=== PATIENT | female | born 1985 | race Two or more races ===

== ENCOUNTER 2025-05-18 08:29 | Inpatient (IN) | payer BC ==
[~2025-05-18] VITALS: Ht 152.4 cm; Wt 59.0 kg
[2025-05-18] MEDS ORDERED: 0.9 % SODIUM CHLORIDE 1,000 ML IV STA (08:45)
[2025-05-18] MEDS ORDERED: SUCRALFATE 1 G TABLET PO ONE (08:45)
[2025-05-18] MEDS ORDERED: FAMOTIDINE/PF 20 MG in 0.9 % SODIUM CHLORIDE 8 ML IV PUSH STA (08:45)
[2025-05-18 09:34] LABS: BASO % 0.2 % (0.1-1.2); EOS # 0.00 (0.04-0.54); EOS % 0.0 % (0.7-7.0); LYMPH # 0.69 (1.18-3.74); LYMPH % 4.2 % (19.3-53.1); MEAN PLATELET VOLUME 10.30 fl (9.4-12.4); MONO # 0.87 (0.24-0.82); MONO % 5.3 % (4.7-12.5); NEUT # 14.72 (1.56-6.13); NEUT % 89.9 % (34.0-71.1); RED CELL DISTRIBUTION WIDTH 13.7 % (11.6-14.4)
[2025-05-18 11:47] LABS: URINE APPEARANCE Clear; URINE BILIRRUBIN Negative (NEGATIVE); URINE BLOOD Negative; URINE COLOR Yellow; URINE GLUCOSE Negative (NEGATIVE); URINE LEUKOCYTE Trace; URINE NITRATE Negative; URINE PROTEIN 30 (NEGATIVE); URINE UROBILINOGEN 0.2 E.U./dl
[2025-05-18 11:49] LABS: URINE BACTERIA 41.9 uL (0.0-1933); URINE EPITHELIAL CELLS 72.7 uL (0.0-38.8); URINE RBC 55.8 uL (0.0-20.8); URINE WBC 41.3 uL (0.0-23.2)
[2025-05-18 12:00] LABS: ALT/SGPT 184.0 U/L (12-78); AST/SGOT 63.0 U/L (15-37); BILIRUBIN TOTAL 0.67 mg/dL (0.3-1.2); BUN CREA RATIO 9.0 (7.0-25.0); CREATININE SERUM 0.76 mg/dL (0.55-1.02); GFR 83.86; GLOBULINA 3.7 G/DL (2.4-3.5); GLUCOSE FASTING 128.0 mg/dL (65-100); OSMOLALITY SERUM 288.0 MOSM/KG (275-295)
[2025-05-18 12:08] LABS: TYPE CELLS SQUAMOUS; URINE CAST 0.43 uL (0.0-1.40); URINE KETONE 80 (NEGATIVE)
[2025-05-18] MEDS ORDERED: PIPERACILLIN/TAZOBACTAM SODIUM 3.375 GM VIAL IV ONE (14:15)
[2025-05-18] MEDS ORDERED: MORPHINE SULFATE 4 MG/ML VIAL IV ONE (14:15)
[2025-05-18] MEDS ORDERED: ONDANSETRON HCL 4 MG in 0.9 % SODIUM CHLORIDE 50 ML IV PRN (20:00)
[2025-05-18] MEDS ORDERED: 0.9 % SODIUM CHLORIDE 1,000 ML IV SCH (20:00)
[2025-05-18] MEDS ORDERED: HYOSCYAMINE SULFATE 0.125 MG TAB.SUBL PO ONE (20:00)
[2025-05-18] MEDS ORDERED: ACETAMINOPHEN 500 MG GEL..CAP PO PRN (20:00)
[2025-05-18 21:07] LABS: INR 1.15
[2025-05-18] MEDS ORDERED: MORPHINE SULFATE 4 MG/ML CARTRIDGE IV STA (22:04)
[2025-05-18] MEDS ORDERED: MORPHINE SULFATE 4 MG/ML CARTRIDGE IV PRN (22:15)
[2025-05-18 22:19] VITALS: BP 140/82; O2SAT 98
[2025-05-19] MEDS ORDERED: PIPERACILLIN/TAZOBACTAM SODIUM 3.375 GM in DEXTROSE 5 % IN WATER 100 ML IV SCH
[2025-05-19 01:09] VITALS: BP 127/79; O2SAT 94
[2025-05-19 08:57] VITALS: BP 135/81; O2SAT 98
[2025-05-19] MEDS ORDERED: FAMOTIDINE/PF 20 MG in 0.9 % SODIUM CHLORIDE 8 ML IV PUSH SCH (09:00)
[2025-05-19 15:12] LABS: ALT/SGPT 110.0 U/L (12-78); AST/SGOT 42.0 U/L (15-37); BILIRUBIN TOTAL 0.91 mg/dL (0.3-1.2); BUN CREA RATIO 11.0 (7.0-25.0); CREATININE SERUM 0.47 mg/dL (0.55-1.02); GFR 146.03; GLOBULINA 3.1 G/DL (2.4-3.5); GLUCOSE FASTING 98.0 mg/dL (65-100); OSMOLALITY SERUM 284.0 MOSM/KG (275-295)
[2025-05-19 16:58] VITALS: BP 136/86; O2SAT 97
[2025-05-20 01:31] VITALS: BP 124/75; O2SAT 97
[2025-05-20 08:00] VITALS: BP 112/71; O2SAT 95
[2025-05-20 12:21] LABS: BASO % 0.2 % (0.1-1.2); EOS # 0.01 (0.04-0.54); EOS % 0.1 % (0.7-7.0); LYMPH # 0.92 (1.18-3.74); LYMPH % 4.8 % (19.3-53.1); MEAN PLATELET VOLUME 10.70 fl (9.4-12.4); MONO # 0.95 (0.24-0.82); MONO % 5.0 % (4.7-12.5); NEUT # 17.10 (1.56-6.13); NEUT % 89.0 % (34.0-71.1); RED CELL DISTRIBUTION WIDTH 14.0 % (11.6-14.4)
[2025-05-20 13:17] LABS: ALT/SGPT 81.0 U/L (12-78); AST/SGOT 29.0 U/L (15-37); BILIRUBIN TOTAL 0.65 mg/dL (0.3-1.2); BUN CREA RATIO 15.0 (7.0-25.0); CREATININE SERUM 0.39 mg/dL (0.55-1.02); GFR 181.11; GLOBULINA 3.1 G/DL (2.4-3.5); GLUCOSE FASTING 72.0 mg/dL (65-100); OSMOLALITY SERUM 281.0 MOSM/KG (275-295)
[2025-05-20] MEDS ORDERED: MAGNESIUM SULFATE IN WATER 50 ML IV NR (15:00)
[2025-05-20] MEDS ORDERED: POTASSIUM CHLORIDE IN WATER 100 ML IV SCH (16:00)
[2025-05-20 17:41] VITALS: BP 114/75
[2025-05-21 01:59] VITALS: BP 112/75; O2SAT 98
[2025-05-21 08:49] VITALS: BP 118/72; O2SAT 97
[2025-05-21] MEDS ORDERED: LACTOBACILLUS ACIDOPHILUS 1 CAP CAP PO SCH (13:00)
[2025-05-21 15:58] LABS: ALT/SGPT 72.0 U/L (12-78); AST/SGOT 43.0 U/L (15-37); BILIRUBIN TOTAL 0.54 mg/dL (0.3-1.2); BUN CREA RATIO 11.0 (7.0-25.0); CREATININE SERUM 0.38 mg/dL (0.55-1.02); GFR 186.63; GLOBULINA 3.3 G/DL (2.4-3.5); GLUCOSE FASTING 112.0 mg/dL (65-100); OSMOLALITY SERUM 279.0 MOSM/KG (275-295)
[2025-05-21 18:33] VITALS: BP 120/81
[2025-05-22 03:05] VITALS: BP 102/65; O2SAT 95
[2025-05-22 09:04] VITALS: BP 112/75; O2SAT 96
[2025-05-22 12:00] VITALS: BP 122/79; O2SAT 95
[2025-05-22 14:15] LABS: BASO % 0.5 % (0.1-1.2); EOS # 0.07 (0.04-0.54); EOS % 0.6 % (0.7-7.0); LYMPH # 1.13 (1.18-3.74); LYMPH % 8.9 % (19.3-53.1); MEAN PLATELET VOLUME 10.20 fl (9.4-12.4); MONO # 0.99 (0.24-0.82); MONO % 7.8 % (4.7-12.5); NEUT # 10.27 (1.56-6.13); NEUT % 80.8 % (34.0-71.1); RED CELL DISTRIBUTION WIDTH 13.6 % (11.6-14.4)
[2025-05-22 14:29] LABS: BUN CREA RATIO 10.0 (7.0-25.0); CREATININE SERUM 0.41 mg/dL (0.55-1.02); GFR 170.96; GLUCOSE FASTING 122.0 mg/dL (65-100); OSMOLALITY SERUM 285.0 MOSM/KG (275-295)
[2025-05-22 16:27] VITALS: BP 118/75
[2025-05-23] MEDS ORDERED: MORPHINE SULFATE 4 MG/ML CARTRIDGE IV PRN (00:45)
[2025-05-23 02:26] VITALS: BP 106/67; O2SAT 95
[2025-05-23] MEDS ORDERED: POTASSIUM CHLORIDE 20MEQ/100ML H2O PB IV ONE (06:48)
[2025-05-23 08:35] VITALS: BP 96/65; O2SAT 96
[2025-05-23 12:14] LABS: BUN CREA RATIO 11.0 (7.0-25.0); CREATININE SERUM 0.38 mg/dL (0.55-1.02); GFR 186.63; GLUCOSE FASTING 114.0 mg/dL (65-100); OSMOLALITY SERUM 285.0 MOSM/KG (275-295)
== END 2025-05-23 11:38 | disposition home or self-care (01) | DRG 444 ==
LOC: ER 08:29 → MEDI 20:30
PROVIDERS: Emergency Medicine; General Practice; Internal Medicine; Student in an Organized Health Care Education/Training Program; ADMIT Internal Medicine; ATTEND Internal Medicine
PROC: BU4CZZZ Ultrasonography of Uterus and Ovaries (ICD-10-PCS; principal; 2025-05-18)
PROC: BW40ZZZ Ultrasonography of Abdomen (ICD-10-PCS; 2025-05-18)
DX: K81.0 Acute cholecystitis (principal); K85.90 Acute pancreatitis without necrosis or infection, unspecified; R65.10 Systemic inflammatory response syndrome (SIRS) of non-infectious origin without acute organ dysfunction; D72.829 Elevated white blood cell count, unspecified